=== PATIENT | male | born 1965 | race Caucasian/White ===

== ENCOUNTER 2017-11-22 06:43 | Inpatient (IN) | payer SELFPAY ==
[2017-11-22] MEDS ORDERED: NA CHLORIDE 0.9% 1,000 ML ONE (06:46)
[2017-11-22] MEDS ORDERED: ACETAMINOPHEN 325 MG TABLET ONE (06:52)
[2017-11-22 06:57] LABS: Absolute Lymphocytes (CBC) 3.7 K/uL (0.7-4.9); Absolute Monocytes 0.8 K/uL (0.1-1.3); Absolute Neutrophil 7.2 K/uL (1.8-8.0); Basophils % 0.5 % (0-1.3); Eosinophils % 1.8 % (0-4.4); Hematocrit 45.8 % (39.6-49.0); Lymphocytes % 30.9 % (15.3-44.8); MCV 91.1 fL (80-100); MPV 8.5 fL (7.6-11.3); Monocytes % 7.1 % (3.3-12.3); RBC Red Blood Cell Count 5.03 M/uL (4.33-5.43)
[2017-11-22 07:02] LABS: Protime INR 0.89
[2017-11-22 07:10] LABS: Potassium 4.1 mEq/L (3.6-5.0)
[2017-11-22 07:16] LABS: Albumin 3.8 g/dL (3.2-5.5); Bilirubin Direct 0.1 mg/dL (0-0.2); Bilirubin Total 0.4 mg/dL (0.3-1.2); Magnesium 1.7 mg/dL (1.8-2.5); Protein, Total 6.7 g/dL (6.0-8.3)
[2017-11-22 07:20] LABS: CKMB Creatine Kinase MB 1.4 ng/ml (0.3-4.0)
[2017-11-22] MEDS ORDERED: ENOXAPARIN 100 MG/ML SYR SQ ONE (07:25)
--- NOTE | 2017-11-22 07:26 | EDPHYS ---
Physician Documentation [facility] Name: Eliezer Nguyen Age: 52 yrs Sex: Male : 1965 Arrival Date: 11/22/2017 Time: 06:44 Bed 4 Private MD: ED Physician Humberto Li HPI: 11/22 06:47 This 52 yrs old Male presents to ER via EMS with complaints of Chest Pain. snw 06:47 Onset: The symptoms/episode began/occurred suddenly, at 03:00, and became persistent. snw Associated signs and symptoms: Pertinent positives: shortness of breath, Pertinent negatives: abdominal pain, cough, vomiting, Nausea. Modifying factors: The patient symptoms are alleviated by nothing. The patient has experienced a previous episode, approximately 2 years ago, "cardiac arrest". The patient has not recently seen a physician. Pt had stents placed in 2015, stopped taking all medications in May 2017. + smoker, cigarettes and marijuana. Historical: - Allergies: 06:48 No Known Allergies; fc - Home Meds: 06:48 aspirin 325 mg Oral TbEC 1 tab once daily [Active]; fc - PMHx: 06:48 cardiac arrest; Hypertension; Migraines; fc - PSHx: 06:48 Heart stents; back surg; fc - Immunization history:: Last tetanus immunization: unknown. - Social history:: Smoking status: Patient uses tobacco products, smokes one-half pack cigarettes per day, Patient uses alcohol, occasionally. street drugs, marijuana. ROS: 06:45 Eyes: Negative for injury, pain, redness, and discharge, ENT: Negative for injury, snw pain, and discharge, Neck: Negative for injury, pain, and swelling. 06:45 Abdomen/GI: Negative for abdominal pain, nausea, vomiting, diarrhea, and constipation, Back: Negative for injury and pain, : Negative for injury, bleeding, discharge, and swelling, MS/Extremity: Negative for injury and deformity, Skin: Negative for injury, rash, and discoloration, Neuro: Negative for headache, weakness, numbness, tingling, and seizure. 06:45 Constitutional: Positive for malaise, c/o chest pain that awoke pt at 0300. 06:45 Cardiovascular: Positive for chest pain. 06:45 Respiratory: Positive for shortness of breath. Exam: 06:45 Head/Face: Normocephalic, atraumatic. Eyes: Pupils equal round and reactive to light, snw extra-ocular motions intact. Lids and lashes normal. Conjunctiva and sclera are non-icteric and not injected. Cornea within normal limits. Periorbital areas with no swelling, redness, or edema. ENT: Nares patent. No nasal discharge, no septal abnormalities noted. Tympanic membranes are normal and external auditory canals are clear. Oropharynx with no redness, swelling, or masses, exudates, or evidence of obstruction, uvula midline. Mucous membranes moist. Neck: Trachea midline, no thyromegaly or masses palpated, and no cervical lymphadenopathy. Supple, full range of motion without nuchal rigidity, or vertebral point tenderness. No Meningismus. Chest/axilla: Normal chest wall appearance and motion. Nontender with no deformity. No lesions are appreciated. Cardiovascular: Regular rate and rhythm with a normal S1 and S2. No gallops, murmurs, or rubs. Normal PMI, no JVD. No pulse deficits. Respiratory: Lungs have equal breath sounds bilaterally, clear to auscultation and percussion. No rales, rhonchi or wheezes noted. No increased work of breathing, no retractions or nasal flaring. Abdomen/GI: Soft, non-tender, with normal bowel sounds. No distension or tympany. No guarding or rebound. No evidence of tenderness throughout. Back: No spinal tenderness. No costovertebral tenderness. Full range of motion. Skin: Warm, dry with normal turgor. Normal color with no rashes, no lesions, and no evidence of cellulitis. MS/ Extremity: Pulses equal, no cyanosis. Neurovascular intact. Full, normal range of motion. Neuro: Awake and alert, GCS 15, oriented to person, place, time, and situation. Cranial nerves II-XII grossly intact. Motor strength 5/5 in all extremities. Sensory grossly intact. Cerebellar exam normal. Normal gait. 06:45 Constitutional: The patient appears alert, anxious, obese, uncomfortable. Vital Signs: 06:48 BP 124 / 89; Pulse 64; Resp 18; Temp 97.8(O); Pulse Ox 99% on R/A; Weight 108.86 kg fc (R); Height 6 ft. 2 in. (187.96 cm) (R); Pain 5/10; 07:01 BP 167 / 89; Pulse 51 MON; Resp 16 S; Pulse Ox 100% on R/A; Pain 5/10; sg 08:30 BP 144 / 89; Pulse 60 MON; Resp 16 S; Pulse Ox 99% on R/A; Pain 5/10; sg 06:48 Body Mass Index 30.81 (108.86 kg, 187.96 cm) fc 08:30 Sinus bradycardia sg MDM: 06:51 Patient medically screened. snw 07:24 Data reviewed: vital signs, nurses notes. Data interpreted: Pulse oximetry: on room air snw is 100 %. Interpretation: normal. Counseling: I had a detailed discussion with the patient and/or guardian regarding: the historical points, exam findings, and any diagnostic results supporting the discharge/admit diagnosis, the presence of at least one elevated blood pressure reading (>120/80) during this emergency department visit, lab results, radiology results, the need for further work-up and treatment in the hospital. Physician consultation: Leonidas Walter MD was called at 07:24, was contacted at 07:24, regarding admission, to the telemetry unit. 11/22 06:45 Order name: Basic Metabolic Panel snw 11/22 06:45 Order name: BNP snw 11/22 06:45 Order name: CBC with Diff snw 11/22 06:45 Order name: Ckmb snw 11/22 06:45 Order name: CPK snw 11/22 06:45 Order name: LFT's snw 11/22 06:45 Order name: Magnesium snw 11/22 06:45 Order name: PT-INR; Complete Time: 07:12 snw 11/22 06:45 Order name: Ptt, Activated; Complete Time: 07:12 snw 11/22 06:45 Order name: Troponin (emerg Dept Use Only); Complete Time: 07:17 snw 11/22 06:45 Order name: Basic Metabolic Panel; Complete Time: 07:21 EDMS 11/22 06:45 Order name: BNP B-Type Natriuretic Peptide; Complete Time: 07:21 EDMS 11/22 06:45 Order name: CBC with Automated Diff; Complete Time: 07:12 EDMS 11/22 06:45 Order name: CKMB Creatine Kinase MB; Complete Time: 07:21 EDMS 11/22 06:45 Order name: XRAY Chest (1 view) snw 11/22 06:45 Order name: EKG; Complete Time: 06:46 snw 11/22 06:45 Order name: Cardiac monitoring; Complete Time: 06:48 snw 11/22 06:45 Order name: EKG - Nurse/Tech; Complete Time: 06:48 snw 11/22 06:45 Order name: IV Saline Lock; Complete Time: 06:48 snw 11/22 06:45 Order name: Labs collected and sent; Complete Time: 06:48 snw 11/22 06:45 Order name: O2 Per Protocol; Complete Time: 06:48 snw 11/22 06:45 Order name: O2 Sat Monitoring; Complete Time: 06:48 snw 11/22 06:45 Order name: Creatine Phosphokinase; Complete Time: 07:21 EDMS 11/22 06:45 Order name: Liver (Hepatic) Function; Complete Time: 07:21 EDMS 11/22 06:45 Order name: Magnesium; Complete Time: 07:21 EDMS 11/22 07:34 Order name: Oxygen: 15L via NRB x 10-15 min for cluster rock; Complete Time: 07:35 snw Administered Medications: 06:48 Drug: NS 0.9% 1000 ml Route: IV; Rate: 75 ml/hr; Site: left antecubital; tl2 06:54 Drug: Tylenol 650 mg Route: PO; tl1 07:29 Follow up: Response: No adverse reaction sv 07:29 Drug: NS 0.9% 500 ml Volume: 500 ml; Route: IV; Rate: 1 bolus; Site: left antecubital; sv 07:29 Drug: Lovenox 100 mg Route: Sub-Q; Site: left lower abdomen; sv Disposition: 11/22/17 07:25 Hospitalization ordered by Leonidas Walter for Observation. Preliminary diagnosis is Chest pain, unspecified. - Bed requested for Telemetry/MedSurg (observation). - Status is Observation. eb - Condition is Stable. - Problem is new. - Symptoms are unchanged. UTI on Admission? No Addendum: 12/16/2017 12:26 Co-signature as Attending Physician, Humberto Li MD available for consultation at p s1 all times. . Signatures: Dispatcher [employer] Mily Dahl RN RN sv Malinda Nino, DISTRICT CUSTOMS DIRECTOR-C DISTRICT CUSTOMS DIRECTOR-Csnw Rosalva Looney, RN RN Concepcion Fernandez, RN RN tl1 Marquita Kingston, RN RN tl2 Humberto Li MD MD ps1 Rae Baez Corrections: (The following items were deleted from the chart) 11/22 07:33 07:25 Hospitalization Ordered by Leonidas Walter MD for Observation. Preliminary eb diagnosis is Chest pain, unspecified. Bed requested for Telemetry/MedSurg (observation). Status is Observation. Condition is Stable. Problem is new. Symptoms are unchanged. UTI on Admission? No. snw 07:56 07:33 11/22/2017 07:25 Hospitalization Ordered by Leonidas Walter MD for Observation. eb Preliminary diagnosis is Chest pain, unspecified. Bed requested for Telemetry/MedSurg (observation). Status is Observation. Condition is Stable. Problem is new. Symptoms are unchanged. UTI on Admission? No. eb 08:45 07:56 11/22/2017 07:25 Hospitalization Ordered by Leonidas Walter MD for Observation. eb Preliminary diagnosis is Chest pain, unspecified. Bed requested for Telemetry/MedSurg (observation). Status is Observation. Condition is Stable. Problem is new. Symptoms are unchanged. UTI on Admission? No. eb
--- NOTE | 2017-11-22 07:26 | ER ---
Nurse's Notes [facility] Name: Eliezer Nguyen Age: 52 yrs Sex: Male : 1965 Arrival Date: 11/22/2017 Time: 06:44 Bed 4 Private MD: Diagnosis: Chest pain, unspecified Presentation: 11/22 06:44 Presenting complaint: EMS states: that pt is having chest pain that woke him from his sleep. Positive for shortness of breath. Denies any nausea or vomiting. Transition of care: patient was not received from another setting of care. Onset of symptoms was November 22, 2017 at 03:00. Initial Sepsis Screen: Does the patient meet any 2 criteria? No. Patient's initial sepsis screen is negative. Does the patient have a suspected source of infection? No. Patient's initial sepsis screen is negative. Care prior to arrival: Medication(s) given: ASA, 81 mg, x 4, Normal saline infusion, 200 ml Nitroglycerin, 0.4 mg SL x 1, IV initiated. 18 GA, in the left antecubital area. 06:44 Method Of Arrival: EMS: [facility] 06:44 Acuity: [facility] 3 Historical: - Allergies: 06:48 No Known Allergies; fc - Home Meds: 06:48 aspirin 325 mg Oral TbEC 1 tab once daily [Active]; fc - PMHx: 06:48 cardiac arrest; Hypertension; Migraines; fc - PSHx: 06:48 Heart stents; back surg; fc - Immunization history:: Last tetanus immunization: unknown. - Social history:: Smoking status: Patient uses tobacco products, smokes one-half pack cigarettes per day, Patient uses alcohol, occasionally. street drugs, marijuana. Screenin:45 Abuse screen: Denies threats or abuse. Nutritional screening: No deficits noted. Tuberculosis screening: No symptoms or risk factors identified. Fall Risk None identified. Assessment: 06:50 General: Appears in no apparent distress. uncomfortable, Behavior is cooperative, tl2 appropriate for age, anxious. Pain: Complains of pain in chest Pain does not radiate. Pain currently is 5 out of 10 on a pain scale. Pain began 1 hour ago. Neuro: Level of Consciousness is awake, alert, obeys commands, Oriented to person, place, time, situation. Cardiovascular: Reports chest pain, shortness of breath, Denies nausea, vomiting, Rhythm is sinus bradycardia. Respiratory: Airway is patent Respiratory effort is even, unlabored, Respiratory pattern is regular, symmetrical. GI: No signs and/or symptoms were reported involving the gastrointestinal system. : No signs and/or symptoms were reported regarding the genitourinary system. Derm: Skin is pink, warm \T\ dry. 07:36 Reassessment: Malinda UTILIZATION REVIEWER at bedside re evaluating pt, updated on POC and need for admit. sg pt reports severe headache, order received for NRB at 15 lpm for 10-15 mins, o2 applied, will reassess. 08:29 Reassessment: Patient appears in no apparent distress at this time. Patient and/or sg family updated on plan of care and expected duration. Pain level reassessed. Patient is alert, oriented x 3, equal unlabored respirations, skin warm/dry/pink. reports headache feels a little better, it is now a 4/10, the chest pain remains a 5/10 at this time. report to be called for room 422, pt and pt family stated understanding. Vital Signs: 06:48 BP 124 / 89; Pulse 64; Resp 18; Temp 97.8(O); Pulse Ox 99% on R/A; Weight 108.86 kg fc (R); Height 6 ft. 2 in. (187.96 cm) (R); Pain 5/10; 07:01 BP 167 / 89; Pulse 51 MON; Resp 16 S; Pulse Ox 100% on R/A; Pain 5/10; sg 08:30 BP 144 / 89; Pulse 60 MON; Resp 16 S; Pulse Ox 99% on R/A; Pain 5/10; sg 06:48 Body Mass Index 30.81 (108.86 kg, 187.96 cm) 08:30 Sinus bradycardia ED Course: 06:44 Patient arrived in ED. fc 06:45 Arm band placed on Patient placed in an exam room, on a stretcher, on bulk driver, fc on pulse oximetry. 06:45 Patient has correct armband on for positive identification. Bed in low position. Call fc light in reach. Side rails up X2. hotel operation manager on. Pulse ox on. NIBP on. 06:45 No provider procedures requiring assistance completed. fc 06:46 Triage completed. fc 06:49 Maintain EMS IV. Dressing intact. Good blood return noted. Site clean \T\ dry. Gauge \T\ tl 2 site: 18 g L AC. Patient maintains SpO2 saturation greater than 95% on room air. 06:50 Malinda Nino FNP-C is [facility]. snw 06:51 Humberto Li MD is Attending Physician. snw 06:57 X-ray completed. Portable x-ray completed in exam room. Patient tolerated procedure jw2 well. 07:00 XRAY Chest (1 view) In Process Unspecified. EDMS 07:03 Kishore Escamilla, RN is Primary Nurse. sg 07:25 Leonidas Walter MD is Hospitalizing Provider. snw 08:40 Patient admitted, IV remains in place. intact, No redness/swelling at site. sg Administered Medications: 06:48 Drug: NS 0.9% 1000 ml Route: IV; Rate: 75 ml/hr; Site: left antecubital; tl2 06:54 Drug: Tylenol 650 mg Route: PO; tl1 07:29 Follow up: Response: No adverse reaction sv 07:29 Drug: NS 0.9% 500 ml Volume: 500 ml; Route: IV; Rate: 1 bolus; Site: left antecubital; sv 07:29 Drug: Lovenox 100 mg Route: Sub-Q; Site: left lower abdomen; sv Outcome: 07:25 Decision to Hospitalize by Provider. snw 08:40 Admitted to Tele accompanied by tech, family with patient, via stretcher, room 422, sg with chart, Report called to Varinder FLORES 08:40 Condition: stable 08:40 Instructed on the need for admit, safety practices, Demonstrated understanding of instructions. 08:45 Patient left the ED. eb Signatures: Dispatcher [employer] EDOK Mily Tripathi RN RN Kihsore Escamilla, RN MARK sg Malinda Nino FNP-C POULTRY PROCESSING SUPERVISOR-Csnw Rosalva Looney RN RN Concepcion Fernandez RN RN tl1 Leola Levin 2 Marquita Kingston RN RN tl2 Rae Baez
--- NOTE | 2017-11-22 09:53 | RAD REPORT ---
EXAM DESCRIPTION: [place] Single View11/22/2017 7:00 am CLINICAL HISTORY: Chest pain COMPARISON: none FINDINGS: The lungs appear clear of acute infiltrate. The heart is normal size IMPRESSION: No acute abnormalities displayed
[2017-11-22] MEDS ORDERED: ASPIRIN EC 81 MG TAB PO SCH (10:00)
--- NOTE | 2017-11-22 11:27 | EKG ---
Test Date: 2017-11-22 Test Time: 10:11:41 Steward/Stewardess Tourist Class: BRIAN MEASUREMENT RESULTS: Intervals: Rate: 58 IN: 134 QRSD: 92 QT: 416 QTc: 408 [place]: P: 53 IN: 134 QRS: 26 T: 45 INTERPRETIVE STATEMENTS: Sinus bradycardia Otherwise normal ECG No previous ECG available for comparison Electronically Signed On 11-22-17 11:27:10 CDT by Adam Hicks
[2017-11-22] MEDS: HYDROCODONE/APAP 5/325 MG TAB PO PRN ×2 (11:29→20:46)
[2017-11-22] MEDS ORDERED: Oxycodone HCl/Acetaminophen 1 TAB TAB PO ONE (12:00)
[2017-11-22] MEDS: METOPROLOL TAR 25 MG TAB PO SCH (21:00)
[2017-11-22] MEDS: ENOXAPARIN 100 MG/ML SYR SQ SCH (21:06)
[2017-11-22] MEDS: ATORVASTATIN 80 MG TAB PO SCH (21:07)
[2017-11-22] MEDS ORDERED: ALPRAZOLAM 0.5 MG TABLET PO ONE (23:33)
--- NOTE | 2017-11-23 00:36 | HP ---
Date of Admission: 11/22/2017 Reason For Admission: Chest pain. History Of Present Illness: The patient is a 52-year-old gentleman with past medical history of zachery nary artery disease with a cardiac cath with stent placement in May 2016, who presented initially with the migraine headaches that wake him up today, then he developed chest pain at rest around 3 a. m. The pain was so severe, did not radiate to his arm. There was no nausea or vomiting, but he did have shortness of breath. He has no abdominal pain. No fever. No chills. In the ER, he was evalua desi. His labs were all within normal including cardiac enzymes, and he was admitted for cardiac eval uation. Currently he is lying in bed. He looks comfortable. He had episode of headache earlier. He has been out of his cardiac medication according to the and due to the lack of insurance. Review of Systems: Otherwise as below. Past Medical History: Significant for coronary artery disease status post cardiac cath, hypertension , hyperlipidemia, migraine. Past Surgical History: Significant for back surgery. Allergies: NONE. Medications: Only taking aspirin 325 mg, but he is supposedly to be on statin, Plavix, and metoprolo l, per his previous c programmer. Family History: Significant for father of AAA. Mother alive, and she had a stroke. Social History: The patient is . Has 2 kids. He is a heavy duty truck mechanic. He smokes p ot, and he smokes half pack a day for the last 20 to 30 years. He does not drink, only socially. Review of Systems: Denies any fever, chills, night sweats, dizziness, lightheadedness. He did have headache before the chest pain. There was no cough or shortness of breath. There was a chest pain. No palpitation. No PND. No orthopnea. He has dyspnea on exertion. No lower extremity edema. No nausea, vomiting, ab dominal pain, change in bowel movement, diarrhea, constipation, shortness of breath, hematuria, histo ry of depression, or anxiety. Physical Examination: Vital signs: Today blood pressure is 137/75, respiratory rate 18, pulse 52, temperature 97.6, satura ting 93%. General: He is fully alert, oriented x3. Does not look in any distress. HEENT: Atraumatic, normocephalic. PERRLA. Oral mucosa is moist. Neck: Supple. No JVD. No carotid bruits. Chest: Clear to auscultation. Good air entry. Heart: Regular rate and rhythm and rhythm. S1, S2 normal. No gallop or murmur. Abdomen: Soft, nontender. No masses. No hepatosplenomegaly. Positive bowel sounds. Extremities: No clubbing, cyanosis, or edema. No calf tenderness. Neurologic: Grossly intact. Cranial nerve exam 2 through 12 intact. Normal sensation. Normal refl exes. Normal muscle strength. Laboratory Data: Labs today showed CBC within normal except for white blood cells 12. PT/INR was no rmal. CMP was normal except for GFR 75, magnesium 1.7. Chest x-ray is unremarkable. EKG unremarkable according the ER note. I do not have a copy of that. Assessment And Plan: This is a 52-year-old gentleman with a history of coronary artery disease with a cardiac arrest with stent placement in April 2016, admitted with another onset of chest pain. 1.Chest pain. Rule out myocardial infarction with history of coronary artery disease. We will cont inue the patient on aspirin, full dose of Lovenox. Will obtain Cardiology consult. The patient is y oung and has history of heart cardiac arrest previously to consider maybe cath versus stress test, gi tunde on the cardiac enzymes. I will check 3 sets of cardiac enzymes. I will resume patient on statin , beta belinda, and Plavix as before. 2.History of hyperlipidemia. I will check cholesterol level in a.m. and continue statin. 3.Symptomatic treatment for his migraine headache. 4.Overweight, advised diet and exercise. SARA Voice ID: [id number]
[2017-11-23] MEDS: HYDROCODONE/APAP 5/325 MG TAB PO PRN ×3 (03:01→18:59)
[2017-11-23 05:04] LABS: Absolute Lymphocytes (CBC) 2.6 K/uL (0.7-4.9); Absolute Monocytes 0.6 K/uL (0.1-1.3); Absolute Neutrophil 5.8 K/uL (1.8-8.0); Basophils % 0.6 % (0-1.3); Hematocrit 45.2 % (39.6-49.0); Lymphocytes % 28.1 % (15.3-44.8); MCH 30.6 pg (27.0-35.0); MCV 91.5 fL (80-100); MPV 8.6 fL (7.6-11.3); Monocytes % 6.5 % (3.3-12.3); RBC Red Blood Cell Count 4.93 M/uL (4.33-5.43)
[2017-11-23 05:33] LABS: BUN Blood Urea Nitrogen 14 mg/dL (6-20); Bicarbonate 27 mEq/L (21-31); Glucose Level 96 mg/dL (65-120); Potassium 4.3 mEq/L (3.6-5.0); Sodium Level 139 mEq/L (135-145)
[2017-11-23] MEDS ORDERED: HOME MED 1 EA UNK (Aspirin [Aspirin Ec 325 Mg] 325 MG) PO SCH (09:00)
[2017-11-23] MEDS: METOPROLOL TAR 25 MG TAB PO SCH ×2 (09:01→21:54)
[2017-11-23] MEDS: CLOPIDOGREL 75 MG TABLET PO SCH (09:01)
[2017-11-23] MEDS: ASPIRIN EC 325 MG TABLET PO SCH (09:01)
[2017-11-23] MEDS: ENOXAPARIN 100 MG/ML SYR SQ SCH (09:02)
[2017-11-23] MEDS ORDERED: NA CHLORIDE 0.9% 0 ML ONE (09:28)
--- NOTE | 2017-11-23 12:04 | EKG ---
Test Date: 2017-11-22 Test Time: 06:44:07 Bumboater: ANAT MEASUREMENT RESULTS: Intervals: Rate: 55 MT: 150 QRSD: 90 QT: 438 QTc: 419 [place]: P: -27 MT: 150 QRS: 53 T: 66 INTERPRETIVE STATEMENTS: Sinus bradycardia Otherwise normal ECG No previous ECG available for comparison Electronically Signed On 11-23-17 12:04:26 CDT by Adam Hicks
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
--- NOTE | 2017-11-23 17:50 | PN ---
Subjective: Patient currently lying in bed. He had severe multiple episodes of cluster headache las t night. No fever. No chills. No chest pain or abdominal pain. No nausea, vomiting. Was seen by Dr. Hicks and he has planned to proceed with a stress test tomorrow morning. Physical Examination: Vital Signs: Blood pressure 130/74, respiratory rate 16, pulse 54, temperature 98.2. General: The patient is fully alert and oriented x3. Does not look in any distress. His at th e bedside. HEENT: Atraumatic, normocephalic. Oral mucosa is moist. Neck: Supple. No JVD. No carotid bruits. Chest: Clear to auscultation. Good air entry. Heart: Regular rate and rhythm. S1, S2 normal. No gallop or murmur. Abdomen: Soft, nontender. No masses. No hepatosplenomegaly. Obese. Positive bowel sounds. Extremities: No clubbing, cyanosis, or edema. No calf tenderness. Neurologic: Grossly intact. Laboratory Data: CBC within normal. Chemistry within normal. PT/INR within normal. Cardiac enzyme s all were negative. Assessment And Plan: 1.Chest pain, rule out myocardial infarction. So far, cardiac enzymes were all negative. The patie nt will have a stress test in the morning. He is currently on DVT prophylaxis with Lovenox only. We will continue aspirin, Plavix, statin, and beta belinda. 2.History of hyperlipidemia with elevated triglycerides at 218. LDL at below goal, which is 76. HD L excellent at 60. Continue statin. 3.Cluster headaches. Continue pain medication. The patient will need to be seen by Neurology as ou tpatient, but he does not have insurance, so maybe we can consider consulting Neurology before discha rging the patient tomorrow. There is no neurology distribution operations supervisor this weekend. 4.Overweight, advised diet and exercise. 5.History of tobacco abuse. Advised to quit smoking. BLACK/HAYES Voice ID: [id number] Report ID: [id number]
[2017-11-23] MEDS: ATORVASTATIN 80 MG TAB PO SCH (21:54)
[2017-11-24] MEDS: ACETAMINOPHEN 500 MG TAB PO PRN ×3 (00:21→19:21)
[2017-11-24] MEDS ORDERED: REGADENOSON 0.4 MG/5 ML SYR IV ONE (08:02)
[2017-11-24] MEDS ORDERED: ENOXAPARIN 40 MG/0.4 ML SQ SCH (09:00)
[2017-11-24] MEDS: METOPROLOL TAR 25 MG TAB PO SCH (09:00)
--- NOTE | 2017-11-24 10:06 | EKG ---
Test Date: 2017-11-24 Test Time: 09:49:23 Parts Sales Advisor: GREGG MEASUREMENT RESULTS: Intervals: Rate: 60 [place]: 142 QRSD: 90 QT: 436 QTc: 436 [place]: P: 66 [place]: 142 QRS: 77 T: 69 INTERPRETIVE STATEMENTS: Normal sinus rhythm Normal ECG Compared to ECG 11/22/2017 10:11:41 Sinus bradycardia no longer present Electronically Signed On 11-24-17 10:06:20 CDT by Adam Hicks
--- NOTE | 2017-11-24 11:27 | RAD REPORT ---
EXAM DESCRIPTION: NM - Rest Stress Cardiac Imaging - 11/24/2017 11:11 am CLINICAL HISTORY: Chest pain COMPARISON: None. TECHNIQUE: The patient was administered 11 mCi of Tc 99m Sestamibi prior to resting SPECT imaging of the heart. The patient was then administered 27 mCi of Tc 99m Sestamibi following exercise or pharma cologic stress. Multiplanar SPECT images were reviewed. FINDINGS: The end diastolic volume is 177 ml, the end systolic volume is 82 ml, and the ejection fra ction is 54 %. Along the inferior wall from base to apex there is diminished activity on stress imaging. This dimini shment of activity is absent or less pronounced on rest imaging. In a patient with ventricular dilata tion, stress ischemia and attenuation artifact can have a similar appearance. Elsewhere the left vent ricular myocardium shows no differential between rest and stress imaging. IMPRESSION: Suspected stress ischemia along the inferior wall. Due to the ventriculomegaly, diaphrag matic attenuation artifact can mimic stress ischemia. Enlarged end-diastolic volume of 177 milliliters with an ejection fraction still normal range at 54%.
--- NOTE | 2017-11-24 12:50 | TREADPHA ---
DX: CHEST PAIN Date of Study: 11/24/17 Ht: 6' 2 " Wt: 240 lb 0 oz Consulting Physician: LÁZARO MEDICATIONS: TYLENOL, NORCO, ECOTRIN, LIPITOR, PLAVIX, LOVENOX, LOPRESSOR. HISTORY: 52 YEAR OLD MALE WITH COMPLAINTS OF CHEST PAIN. MEDICAL HISTORY: CARDIAC ARREST, HYPERTENSION, MIGRAINES, SMOKER PHYSICIAL EXAMINATION: RESTING B.P.: 130/88 RESTING H.R.: 64 RESTING EKG: NORMAL. PROTOCOL: LEXISCAN EXERCISE TIME: 3:30 B.P. AT PEAK STRESS: 148/80 IMPRESSION: LEXISCAN INJECTED, CARDIOLITE INJECTED PER PROTOCOL. SEE NUCLEAR MEDICINE REPORT. NO SUPRA VENTRICULAR TACHYCARDIA, NO VENTRICULAR TACHYCARDIA, NO PREMATURE VENRTRICULAR COMPLEXES. CHEST PAIN REMAINED THE SAME 2/10 THROUGHOUT TEST. NON DIAGNOSTIC EKG WITH LEXISCAN STRESS.
[2017-11-24] MEDS: ASPIRIN EC 325 MG TABLET PO SCH (12:54)
[2017-11-24] MEDS: CLOPIDOGREL 75 MG TABLET PO SCH (12:54)
[2017-11-24] MEDS: NICOTINE 7 MG/PAT TD SCH (14:45)
--- NOTE | 2017-11-24 16:21 | PN ---
Mr. Nguyen is not having chest pain. He still has headaches. He has a history of coronary heart dis ease and his nuclear stress test indicates inferior ischemia. He showed me his stent card and it is apparent that in 2016, they put a circumflex stent in. I have recommended cardiac cath and possible stent tomorrow, that will be Dr. Anthony. We will keep him n.p.o. and be ready to put a stent in if he needs it. KYLE/HAYES Voice ID: [id number] Report ID: [id number]
--- NOTE | 2017-11-24 16:31 | P.PN ---
Subjective Date of Service: 11/24/17 Primary Care Provider: None Chief Complaint: Chest pain Pt seen and examined at bedside with RN. This AM pt was bradycardic and having trouble breathing. pt was asked to lay back down in bed and cardiology was notified. Pt is now s/p Stress test. Scheduled for Cardiac cath bradly. Review of Systems General: As per HPI Physical Examination - Vital Signs Temperature: 98.1 F Blood Pressure: 158/86 Pulse: 65 Respirations: 18 Pulse Ox (%): 95 - Physical Exam General: Alert, In no apparent distress HEENT: Atraumatic, PERRLA, EOMI Neck: Supple, JVD not distended Respiratory: Clear to auscultation bilaterally, Normal air movement Cardiovascular: Regular rate/rhythm, Normal S1 S2 Gastrointestinal: Normal bowel sounds, No tenderness Musculoskeletal: No tenderness Integumentary: No rashes Neurological: Normal speech, Normal tone, Normal affect Lymphatics: No axilla or inguinal lymphadenopathy - Studies Medications List Reviewed: Yes Assessment & Plan - Problems (Diagnosis) (1) Chest pain Onset Date: 11/24/17 Current Visit: Yes Status: Acute Plan: Chest Pain with Negative Troponin and bradycardia on the EKG -Pharm Stress test consistent with possibility of Ischemia. -Scheduled for Cath bradly. -NPO after midnight -ACS protocol - ASA, Plavix and lipitor. Hold BB due to Bradycardia -Cardiology consulted. Appreciate Reccs Qualifiers: Chest pain type: chest pain on breathing Qualified Code(s): R07.1 - Chest pain on breathing; R07.81 - Pleurodynia (2) Migraine headache Onset Date: 11/24/17 Current Visit: Yes Status: Chronic Qualifiers: Migraine type: other Status migrainosus presence: without status migrainosus Intractability: not intractable Qualified Code(s): G43.809 - Other migraine, not intractable, without status migrainosus (3) Overweight Onset Date: 11/24/17 Current Visit: Yes Status: Chronic Discharge Plan: Home Plan to discharge in: 48 Hours - Code Status/Comfort Care Code Status Assessed: Yes Critical Care: No
[2017-11-24] MEDS: ATORVASTATIN 80 MG TAB PO SCH (20:24)
[2017-11-25] MEDS: ACETAMINOPHEN 500 MG TAB PO PRN ×2 (05:02→10:18)
[2017-11-25] MEDS: ASPIRIN EC 325 MG TABLET PO SCH (05:42)
[2017-11-25] MEDS: CLOPIDOGREL 75 MG TABLET PO SCH (05:42)
[2017-11-25] MEDS ORDERED: NA CHLORIDE 0.9% 500 ML ONE (07:44)
[2017-11-25] MEDS ORDERED: LIDOCAINE 1% 20 ML MDV ONE (07:46)
[2017-11-25] MEDS ORDERED: HEPA 1000U/500MLS 1,000 UNIT/500 ML BAG IV ONE (07:46)
[2017-11-25] MEDS ORDERED: ATROPINE SULF 1 MG/10 ML SYR IV ONE (07:46)
[2017-11-25] MEDS ORDERED: NA CHLORIDE 0.9% 0 ML ONE (07:46)
[2017-11-25] MEDS ORDERED: MIDAZOLAM HCL 2 MG/2 ML INJ ONE ×2 (08:07→08:12)
[2017-11-25] MEDS ORDERED: FENTANYL CITR 100 MCG/2 ML ONE (08:07)
[2017-11-25] MEDS: NICOTINE 7 MG/PAT TD SCH (10:18)
--- NOTE | 2017-11-25 17:43 | P.DS ---
Admission Date: 11/24/17 Discharge Date: 11/25/17 Primary Care Provider: None Disposition: ROUTINE DISCHARGE Discharge Condition: GOOD Reason for Admission: Chest pain Consultations: Cardiology Procedures: Stress test and Cardiac Cath - refer to the report for Results - Problems (1) Chest pain Onset Date: 11/24/17 Status: Acute Qualifiers: Chest pain type: chest pain on breathing Qualified Code(s): R07.1 - Chest pain on breathing; R07.81 - Pleurodynia (2) Migraine headache Onset Date: 11/24/17 Status: Chronic Qualifiers: Migraine type: other Status migrainosus presence: without status migrainosus Intractability: not intractable Qualified Code(s): G43.809 - Other migraine, not intractable, without status migrainosus (3) Overweight Onset Date: 11/24/17 Status: Chronic Brief History of Present Illness: The patient is a 52-year-old gentleman with past medical history of coronary artery disease with a cardiac cath with stent placement in May 2016, who presented initially with the migraine headaches that wake him up today, then he developed chest pain at rest around 3 a.m. The pain was so severe, did not radiate to his arm. There was no nausea or vomiting, but he did have shortness of breath. He has no abdominal pain. No fever. No chills. In the ER, he was evaluated. His labs were all within normal including cardiac enzymes, and he was admitted for cardiac evaluation. Currently he is lying in bed. He looks comfortable. He had episode of headache earlier. He has been out of his cardiac medication according to the and due to the lack of insurance. Hospital Course: Overall during the hospital stay patient remained stable Patient initially was admitted to the hospital for chest pain and for ACS rule out. While here in the hospital patient had a cardiology consult who recommended the patient get an echocardiogram done here in the hospital along with a stress test. Stress test was done here in the hospital which was positive for ischemic event. Patient then underwent cardiac catheterization and was found to have a patent stent that he has previously been placed in no new stents were placed this time. Please refer to the detailed report under cardiac catheterization for further results. At that time patient was given prescription for Toprol, Lipitor, paste and pain medication to go home with for ACS rule out. Patient was asked to stop his Plavix at this time. While here in the hospital patient also had excruciating headaches. Patient has a history of migraine headache for over 25 years and has not been to see a neurologist. Patient was educated extensively on the need for a neurology follow up outpatient however patient was quite upset that he was not able to see a neurologist while he was here in the hospital. Patient was educated extensively on hospital coliseum procedure in the need for any emergent versus non Intel. Patient did become angry and was throwing stuff around his room and left the hospital. The Purple was called as patient was found punching the elevator wall and there was a concern for safety of the daughter was trying to explain to the patient the need to follow up with neurology outpatient. Patient was found in his truck at which point securities confirmed that he was doing okay and the daughter will be driving him home under stable condition. Vital Signs/Physical Exam: Temp Pulse Resp BP Pulse Ox 96.8 F 58 16 182/86 H 98 11/25/17 12:00 11/25/17 12:16 11/25/17 12:00 11/25/17 12:16 11/25/17 12:16 General: Alert, In no apparent distress HEENT: Atraumatic, PERRLA, EOMI Neck: Supple, JVD not distended Respiratory: Clear to auscultation bilaterally, Normal air movement Cardiovascular: Regular rate/rhythm, Normal S1 S2 Gastrointestinal: Normal bowel sounds, No tenderness Musculoskeletal: No tenderness Integumentary: No rashes Neurological: Normal speech, Normal tone, Normal affect Lymphatics: No axilla or inguinal lymphadenopathy Laboratory Data at Discharge: WBC 9.2 K/uL (4.3-10.9) D 11/23/17 04:37 Hgb 15.1 g/dL (13.6-17.9) 11/23/17 04:37 Hct 45.2 % (39.6-49.0) 11/23/17 04:37 Plt Count 228 K/uL (152-406) 11/23/17 04:37 PT 10.5 SECONDS (9.5-12.5) 11/22/17 06:40 INR 0.89 11/22/17 06:40 APTT 29.7 SECONDS (24.3-36.9) 11/22/17 06:40 Sodium 139 mEq/L (135-145) 11/23/17 04:37 Potassium 4.3 mEq/L (3.6-5.0) 11/23/17 04:37 BUN 14 mg/dL (6-20) 11/23/17 04:37 Creatinine 0.88 mg/dL (0.61-1.24) 11/23/17 04:37 Glucose 96 mg/dL (65-120) 11/23/17 04:37 Magnesium 1.7 mg/dL (1.8-2.5) L 11/22/17 06:40 Total Bilirubin 0.4 mg/dL (0.3-1.2) 11/22/17 06:40 AST 16 IU/L (10-42) 11/22/17 06:40 ALT 14 IU/L (10-60) 11/22/17 06:40 Alkaline Phosphatase 58 IU/L (42-121) 11/22/17 06:40 Troponin I < 0.03 ng/mL (<0.03) 11/22/17 14:01 B-Natriuretic Peptide 26 pg/ml (<=100) 11/22/17 06:40 Triglycerides 218 mg/dL (35-160) H 11/22/17 14:01 Cholesterol 180 mg/dL (<200) 11/22/17 14:01 HDL Cholesterol 60 mg/dL (27-67) 11/22/17 14:01 Cholesterol/HDL Ratio 3.00 11/22/17 14:01 Home Medications: Aspirin [Aspirin EC 325 MG] 325 mg PO DAILY 11/22/17 Atorvastatin Calcium [Lipitor] 80 mg PO BEDTIME 11/22/17 Metoprolol Succinate [Toprol Xl] 50 mg PO DAILY #30 tab.er.24h 11/25/17 Nitroglycerin [Nitrostat] 0.4 mg SL ONCE PRN #25 cap 11/25/17 New Medications: Metoprolol Succinate [Toprol Xl] 50 mg PO DAILY #30 tab.er.24h Nitroglycerin [Nitrostat] 0.4 mg SL ONCE PRN #25 cap PRN Reason: Chest Pain Patient Discharge Instructions: Please f/u with PCP And Dr Anthony in 1 week post discharge. New medication. Toprol xl 50mg Daily PO. Nitroglycerin 0.4 cap SL PRN chest Pain Diet: Regular Activity: Ad tania Followup: [facility] [Outside] Bubba Anthony MD [ACTIVE - CAN ADMIT] - 1 Week (call to schedule an appointment)
--- NOTE | 2017-11-25 19:40 | OP ---
Date of Procedure: 11/25/2017 Surgeon: Bubba Anthony MD License Issuer: Izzy Jane. This is an inpatient procedure. The patient was admitted to Dr. Deras on 11/22/2017, while he was br ought to the labor relations consultant as an inpatient today on 11/25/2017. The patient was prepped and draped in the routine sterile fashion. Procedures Performed: Left heart catheterization. Selective coronary arteriogram. Reason For Procedure: Chest pain, history of CAD, and positive Cardiolite in the inferior wall. Description Of Procedure: He was prepped and draped in the routine sterile fashion. Given Versed fo r IV sedation. A 6-Trinidadian sheath introduced in the right common femoral artery. Angio-Seal was used to close the case. Angiogram in the common femoral artery was normal. The patient had a normal RCA . The circumflex was normal. He was codominant. He had 2 stents in the circumflex, proximal and mi d. They were open without any restenosis. LAD showed moderate disease with a 40-50% stenosis in the mid LAD, diffuse plaquing distally and proximally. There were no complications. Blood loss was 5 c c. Total conscious sedation was 30 minutes. Chemistry Instructor: Bubba Anthony M.D. Plan: For medical therapy. Final Diagnosis: Moderate coronary artery disease. JAN/HAYES Voice ID: [id number] Report ID: [id number]
== END 2017-11-25 12:25 | disposition home or self-care (01) | DRG 287 ==
LOC: ER 06:43 → ERHOLD 07:26 → 4TH 08:38 → OBSVTOIN 11-24 12:00
PROVIDERS: ADMIT Internal Medicine; ATTEND Family Medicine
PROC: 4A023N7 Measurement of Cardiac Sampling and Pressure, Left Heart, Percutaneous Approach (ICD-10-PCS; principal; 2017-11-25)
PROC: B210YZZ Fluoroscopy of Single Coronary Artery using Other Contrast (ICD-10-PCS; 2017-11-25)
DX: I25.119 Atherosclerotic heart disease of native coronary artery with unspecified angina pectoris (principal); G43.909 Migraine, unspecified, not intractable, without status migrainosus; I10 Essential (primary) hypertension; E78.5 Hyperlipidemia, unspecified; E66.3 Overweight; R00.1 Bradycardia, unspecified; Z68.30 Body mass index [BMI] 30.0-30.9, adult; Z95.1 Presence of aortocoronary bypass graft
CPT/HCPCS: 36415; 71045; 78452; 80048; 80061; 80076; 82550; 82553; 83735; 83880; 84484; 85025; 85610; 85730; 93005; 93017; 93454; 96372; 99285; A9500; C1760; C1893; G0378; J0583; J1650; J2250; J2785; J3010; J7030